=== PATIENT | female | born 1975 | race Caucasian/White ===

== ENCOUNTER 2020-06-09 11:18 | Outpatient (CLI) | payer OTHER, SELFPAY | END 2020-06-09 11:19 | disposition home or self-care (01) | LOC: ANHCOVIDVC 11:18 | PROVIDERS: PCP Family Medicine | DX: Z23 Encounter for immunization (principal) | CPT/HCPCS: 0001A; 91300 ==

== ENCOUNTER → 2020-06-23 10:20 | Outpatient (CLI) | payer OTHER, SELFPAY ==
--- NOTE | ~2020-06-23 | US_ITS ---
EXAMINATION: US pelvic complete w TV DATE: 06/23/2020 11:28 INDICATION: Pelvic and perineal pain Comparison:No prior studies for comparison. TECHNIQUE: Multiple transabdominal and endovaginal sonographic images of the pelvis performed. FINDINGS: The uterus measures 9.3 x 4.3 x 5.7 cm. The endometrial complex measures 5 mm. The right ovary measures 2.7 x 1.4 x 2.3 cm and the left ovary measures 1.7 x 0.9 x 1.3 cm. There ar e small follicles in each ovary. Normal doppler signal in both ovaries. There is no free fluid in the pelvis. There are no abnormal masses seen on either side. IMPRESSION: 1. Normal pelvic ultrasound. Reviewed, dictated and finalized at location B.
== END ==
DX: R10.2 Pelvic and perineal pain (principal)
CPT/HCPCS: 76830; 76856

== ENCOUNTER 2020-06-30 11:18 | Outpatient (CLI) | payer OTHER, SELFPAY | END 2020-06-30 11:19 | disposition home or self-care (01) | LOC: ANHCOVIDVC 11:18 | DX: Z23 Encounter for immunization (principal) | CPT/HCPCS: 0002A; 91300 ==

== ENCOUNTER → 2020-08-11 10:14 | Outpatient (CLI) | payer OTHER, SELFPAY ==
--- NOTE | ~2020-08-11 | MM_ITS ---
EXAMINATION: MM screening elmer BI w abran HISTORY: Screening mammogram TECHNIQUE: Craniocaudal and mediolateral oblique 3-D tomosynthesis images were obtained and synthetic 2-D images were generated. CAD analysis was submitted and interpreted. COMPARISON: No prior mammogram is available for comparison at this institution. BREAST PARENCHYMAL COMPOSITION: The breasts are heterogeneously dense, which may obscure small masses . FINDINGS: RIGHT BREAST: There is no evidence of suspicious mass, calcification, or architectural distortion to suggest malignancy. LEFT BREAST: An asymmetry is present in the subareolar aspect of the left breast. IMPRESSION: 1. Left breast asymmetry which may represent the patient's baseline however no comparison is currentl y available. 2. Comparison with prior mammograms is necessary. BI-RADS Category 0: Incomplete: Needs comparison with prior mammograms. Reviewed, dictated and finalized at location A. IMPRESSION: 1. Left breast asymmetry which may represent the patient's baseline however no comparison is currently available. 2. Comparison with prior mammograms is necessary. BI-RADS Category 0: Incomplete: Needs comparison with prior mammograms.
== END ==
DX: Z12.31 Encounter for screening mammogram for malignant neoplasm of breast (principal); R92.8 Other abnormal and inconclusive findings on diagnostic imaging of breast
CPT/HCPCS: 77063; 77067

== ENCOUNTER → 2020-09-16 09:19 | Outpatient (CLI) | payer OTHER, SELFPAY ==
--- NOTE | ~2020-09-16 | MMUS_ITS ---
EXAMINATION: MM diagnostic elmer LT w abran, US breast LT limited HISTORY: Follow-up subareolar asymmetry TECHNIQUE: Additional 3-D tomosynthesis images of the left breast were performed and synthetic 2-D im ages were generated. CAD analysis was submitted and interpreted. High resolution Limited left breast ultrasound was performed. COMPARISON: Comparison to multiple prior studies sequentially, with oldest reviewed study dated 06/2018. BREAST PARENCHYMAL COMPOSITION: Breast composed of scattered areas of fibroglandular density. FINDINGS: MAMMOGRAPHIC FINDINGS: There are no suspicious masses, calcifications or architectural distortion in the left breast to sugg est malignancy. ULTRASOUND: Left breast ultrasound: L1-2 o'clock, near the arterial lobe there is a 7 mm cyst. No suspicious kelly d masses to suggest malignancy. IMPRESSION: 1. No evidence for malignancy in the left breast. Benign findings. 2. Routine yearly screening mammogram and regular clinical breast examination are recommended. BI-RADS Category 2: Benign finding(s). Reviewed, dictated and finalized at location A. IMPRESSION: 1. No evidence for malignancy in the left breast. Benign findings. 2. Routine yearly screening mammogram and regular clinical breast examination a re recommended. BI-RADS Category 2: Benign finding(s).
== END ==
DX: R92.8 Other abnormal and inconclusive findings on diagnostic imaging of breast (principal)
CPT/HCPCS: 76642; 77061; 77065; G0279

== ENCOUNTER → 2020-10-28 03:41 | Outpatient (CLI) | payer OTHER, SELFPAY ==
[2020-10-28 18:14] LABS: SARS-CoV-2 RNA PCR Negative
== END ==
PROVIDERS: PCP Family Medicine; Visit Provider Physician Assistant
DX: R68.89 Other general symptoms and signs (principal); Z20.822 Contact with and (suspected) exposure to COVID-19
CPT/HCPCS: C9803; U0003; U0005

== ENCOUNTER 2021-06-02 11:00 | Outpatient (CLI) | payer OTHER, SELFPAY ==
--- NOTE | ~2021-06-02 | CT_ITS ---
EXAMINATION: CT soft tissue neck w con DATE: 06/02/2021 11:54 INDICATION: Neck mass. Left ear pain. TECHNIQUE: Computed tomography (CT) of the neck was performed with 75 mL Omnipaque-350 intravenous co ntrast. Automated exposure control and iterative reconstruction technique were employed. The dose-starla gth product was 418.09 mGy-cm. COMPARISON: None FINDINGS: There are no pathologically enlarged lymph nodes. The cervical carotid arteries are normal. The paranasal sinuses are clear. There is a trace right mastoid effusion. There are changes of anter ior fusion procedure from C3 to C7. There is moderate cervical and thoracic spondylosis. IMPRESSION: 1. No abnormal neck mass or lymphadenopathy. Reviewed, dictated and finalized at location A.
[2021-06-02 11:28] LABS: Estimated Glomerular Filt Rate > 60
== END 2021-06-02 11:01 ==
PROVIDERS: PCP Family Medicine; Visit Provider Otolaryngology
DX: R22.1 Localized swelling, mass and lump, neck (principal); M47.813 Spondylosis without myelopathy or radiculopathy, cervicothoracic region; Z98.1 Arthrodesis status
CPT/HCPCS: 70491; Q9967

== ENCOUNTER 2021-09-12 11:43 | Emergency (ER) | payer OTHER, SELFPAY ==
--- NOTE | ~2021-09-12 | XR_ITS ---
XR knee RT min 4V 09/12/2021 12:32 INDICATION: Right knee pain after fall PROCEDURE: 4 views right knee COMPARISON: No prior studies for comparison. FINDINGS: Fracture, dislocation or subluxation is not identified. No significant joint effusion. The soft tissues appear within normal limits. No foreign bodies are identified. There is anatomic alignm ent. No significant joint space narrowing. IMPRESSION: 1: NO ACUTE BONE OR JOINT ABNORMALITY IDENTIFIED. Reviewed, dictated and finalized at location A.
--- NOTE | 2021-09-12 11:45 | ED.LOWEXIN ---
HPI - Extremity Injury (Lower) General Stated Complaint: rt knee injury/work-related Time Seen by Provider: 09/12/21 11:45 Source: patient Mode of arrival: ambulatory Limitations: no limitations History of Present Illness HPI Narrative: Ms. Capps is a 45-year-old female patient presenting to the clinic today with complaints of right knee pain/injury that occurred at work on September 06, 2021. She reports she was leaning down to put some towels in an area and lost her balance and landed on her right knee. She reports pain to the anterior and posterior knee. Pain is worse with walking. She denies any swelling or redness. Related Data Allergies Allergy/AdvReac Type Severity Reaction Status Date / Time Iodinated Contrast Media Allergy Mild Unknown Verified 05/11/21 10:33 Review of Systems Review of Systems: Pertinent positives per HPI. Patient denies any fever, chills, rash, headache, visual changes, dizziness, cough, runny nose, sore throat, shortness of breath, chest pain, palpitations, nausea, vomiting, diarrhea, constipation, abdominal pain, or any urinary issues. PMFSH Past Medical History Medical History Bone spur Bulge of cervical disc without myelopathy Surgical History Surgical History S/P cervical disc replacement Family History Family History Father Diabetes mellitus Hypertension Family history of cardiovascular disease Social History Social History Smoking status: Never smoker Smoking end date: 02/26/16 Alcohol intake: current Substance use: never Gender identity (if verbalized by the patient): Female Sexual Orientation (if Verbalized by the Patient): Straight or Heterosexual Comments At the time of my signature, I reviewed and agree with the nursing past medical, surgical, social, and family history. There is no relevant family history pertinent to the patient complaint. Exam Narrative: General: Well-developed, well nourished, in no apparent distress Head: Normocephalic, atraumatic. Cardio: Regular rate and rhythm, s1 and s2 normal, no murmur appreciated. Resp: Clear to auscultation bilaterally, no rhonchi, rales, wheezing or rubs. Musculoskeletal: No deformity to the right knee, no swelling, no bruising,tender to palpation over the medial anterior knee and posterior knee, grossly normal range of motion, muscle strength strong and equal, peripheral pulse strong, no edema, no cyanosis, normal gait and station Course Course Emergency Course: Portions of this record may have been created with voice recognition software. Level of Care: Express Care Visit Vital Signs Vital signs: Vital signs reviewed MDM - Extremity Injury (Lower) MDM Narrative Medical decision making narrative: At the time of visit patient is resting comfortably on the exam table. Right knee x-ray performed and was negative for any fracture or malalignment. I suspect the patient has knee contusion/possible derangement. Will have patient get a hinged knee brace and wear this x1 week. Rest, ice, and elevate the right lower extremity. Supportive measures were discussed with the patient she voiced understanding of discharge instructions Differential Diagnosis Differential diagnosis: Likely acute internal derangement of knee and other (Knee contusion, knee sprain ) Imaging Data Attestation: I personally reviewed and interpreted this imaging study as follows: My impression: Right knee negative for any fracture or malalignment Radiologist's impression: [address] [address] XRay Report Signed Patient: Tejal Capps : 1975 MR#: [id number] Age/Sex: 45 / F Acct:[id number] Loc: [facility]? ? AD
[2021-09-12 12:03] VITALS: BP 114/77; PULSE 91; RESP 16; TEMP 36.5; O2SAT 98
== END 2021-09-12 12:50 | disposition home or self-care (01) ==
PROVIDERS: Emergency Provider Nurse Practitioner Family; PCP Family Medicine
DX: M25.561 Pain in right knee (principal)
CPT/HCPCS: 73564; 99213; G0463

== ENCOUNTER 2022-09-14 12:11 | Outpatient (CLI) | payer OTHER, SELFPAY ==
--- NOTE | ~2022-09-14 | XR_ITS ---
Left Knee Technique: AP, notch, sunrise, and lateral views were obtained. Clinical History: Pain Findings: No fracture or dislocation is seen. Osseous alignment is anatomic. Joint spaces are preserv ed without degenerative or erosive change. Soft tissues are unremarkable. No joint effusion is seen. Impression: Unremarkable left knee radiographs. Reviewed, dictated and finalized at location . Impression: Unremarkable left knee radiographs.
== END 2022-09-14 12:12 | disposition home or self-care (01) ==
PROVIDERS: PCP Family Medicine; Visit Provider Physician Assistant
DX: M25.562 Pain in left knee (principal)
CPT/HCPCS: 73564

== ENCOUNTER 2022-10-02 16:18 | Outpatient (CLI) | payer OTHER, SELFPAY ==
[2022-10-02 17:36] LABS: Bacteria Urine 2+ /hpf; Non Pathogenic Casts 0-2; RBC Urine 0-2 /hpf (0-2); Squamous Epithelial Cell Urine Occasional /hpf (Few); WBC Urine 21-50 /hpf (0-3)
[2022-10-02 18:08] LABS: Appearance Urine Cloudy (Clear); Bilirubin Urine Negative (Negative); Blood Urine 1+ (Negative); Color Urine Yellow (Yellow); Glucose Urine UA Negative (Negative); Ketones Urine Negative (Negative); Leukocyte Esterase Ur 1+ LEU/UL (NEGATIVE); Nitrate Urine Positive (Negative); Protein Urine Negative (Negative); Specific Grav Ur 1.011 (1.001-1.035); Urobilinogen Urine 0.2 mg/dL (<2.0); pH Urine 5.5 (5.0-9.0)
[2022-10-02 18:22] LABS: Add Urine Microscopic? YES
== END 2022-10-02 16:19 | disposition home or self-care (01) ==
PROVIDERS: PCP Family Medicine; Visit Provider Physician Assistant
DX: N39.0 Urinary tract infection, site not specified (principal); R35.0 Frequency of micturition
CPT/HCPCS: 81001; 87077; 87086; 87186

== ENCOUNTER 2023-01-15 08:20 | Emergency (ER) | payer OTHER, SELFPAY ==
--- NOTE | 2023-01-15 08:24 | ED.EYEPROB ---
HPI - Eye Problem General Chief complaint: Eye Problems Stated complaint: rt eye irritation Time Seen by Provider: 01/15/23 08:23 Source: patient Mode of arrival: ambulatory Limitations: no limitations History of Present Illness HPI Narrative: Tejal is a 47-year-old female patient presenting to the clinic today complaints of right eye irritation, cough, and sinus congestion. She reports sinus congestion is been going on for approximately 3 days. Itching watering right eye began last night. She denies any fever or chills. Reports that it is draining yellow discharge from the eye as well as crusting shut this morning. Eye is itchy and painful to touch. Related Data Home Medications Medication Instructions Recorded Confirmed celecoxib 200 mg capsule 200 mg PO DAILY 01/15/23 01/15/23 Allergies Allergy/AdvReac Type Severity Reaction Status Date / Time Iodinated Contrast Media AdvReac Mild Hives Verified 01/15/23 08:24 Review of Systems Review of Systems: Pertinent positives per HPI. Patient denies any fever, chills, rash, headache, visual changes, dizziness, sore throat, shortness of breath, chest pain, palpitations, nausea, vomiting, diarrhea, constipation, abdominal pain, or any urinary issues. [facility] Past Medical History Medical History Bone spur Bulge of cervical disc without myelopathy Surgical History Surgical History S/P cervical disc replacement Family History Family History Father Diabetes mellitus Hypertension Family history of cardiovascular disease Social History Social History Social History: Smoking status: Never smoker Tobacco type: cigarettes Second hand tobacco smoke exposure: No Smoking end date: 02/26/16 Alcohol intake: current Alcohol use details: Occasionally Substance use: never Substance use type: does not use Lack of Transportation: No Lack of Food: Never True Current Housing: I Have Housing Concerned About Future Housing: No Difficulty Paying Gas/Electric Bills: No Difficulty Paying for Meds: No Currently Unemployed: No Education: Trade/Vocational Certificate Living arrangements: with family Occupation/Education: occupation Additional occupation/education comments: [employer] Gender identity (if verbalized by the patient): Female Sexual Orientation (if Verbalized by the Patient): Straight or Heterosexual Comments At the time of my signature, I reviewed and agree with the nursing past medical, surgical, social, and family history. There is no relevant family history pertinent to the patient complaint. Exam Narrative: General: Well-developed, obese, in no apparent distress Head: Normocephalic, atraumatic Eyes: Pupils equally round and reactive to light bilaterally, EOM intact, left sclera and conjunctive clear, right sclera and conjunctiva injected with yellow mucopurulent discharge, no left eye discharge, left lids normal, right lid swelling Ears: TMs intact and congested, ear canals clear, no drainage, grossly hearing normal. Nose: Nares patent, clear nasal discharge, no inflammation, no sinus tenderness. Mouth: Oropharynx without lesions or masses, good dentition, MMM. Neck: Supple, trachea midline, no enlargement of anterior or posterior cervical nodes, no thyroid masses or goiter palpable. Cardio: Regular rate and rhythm, s1 and s2 normal, no murmur appreciated. Resp: Clear to auscultation bilaterally anteriorly and posteriorly, no rhonchi, rales, wheezing or rubs Course Course Emergency Course: Portions of this record may have been created with voice recognition software. Level of Care: Express Care Visit Vital Signs Vital signs: Vital signs reviewed
[2023-01-15 08:35] VITALS: BP 127/84; PULSE 99; RESP 20; TEMP 36.1; O2SAT 96
== END 2023-01-15 08:43 | disposition home or self-care (01) ==
PROVIDERS: Emergency Provider Nurse Practitioner Family; PCP Family Medicine
DX: H10.31 Unspecified acute conjunctivitis, right eye (principal); J06.9 Acute upper respiratory infection, unspecified; Z87.891 Personal history of nicotine dependence; Z98.890 Other specified postprocedural states
CPT/HCPCS: 99213; G0463

== ENCOUNTER 2023-03-21 10:33 | Emergency (ER) | payer OTHER, SELFPAY ==
--- NOTE | ~2023-03-21 | XR_ITS ---
EXAMINATION: XR knee LT min 4V DATE: 03/21/2023 11:17 INDICATION: Anterior and medial left knee pain post fall TECHNIQUE: Anteroposterior, 2 oblique and crosstable lateral views of the left knee were obtained COMPARISON: None. FINDINGS: Alignment is normal. No fracture. Joint space appear normal on nonweightbearing imaging. No joint ef fusion/layering lipohemarthrosis. Soft tissues are unremarkable. IMPRESSION: 1. Negative left knee radiographs. Reviewed, dictated and finalized at location A. [employer]
--- NOTE | 2023-03-21 10:36 | ED.LOWEXIN ---
HPI - Extremity Injury (Lower) General Chief Complaint: Extremity Injury, Lower Stated Complaint: fall,lt knee pain Time Seen by Provider: 03/21/23 10:35 Source: patient Mode of arrival: ambulatory Limitations: no limitations History of Present Illness HPI Narrative: Tejal is a 47-year-old female patient presenting to the clinic today with complaints of a left knee pain after falling yesterday the mud. She reports she was walking outside and slipped in the mud and fell on her knees. She is reporting anterior and medial left knee pain. Pain is worse with full extension or full flexion of the knee. Pain is mild with ambulation. Mild swelling noted Related Data Allergies Allergy/AdvReac Type Severity Reaction Status Date / Time iodine Allergy Hives Verified 03/21/23 10:58 Iodinated Contrast Media AdvReac Mild Hives Verified 01/15/23 08:24 Review of Systems Review of Systems: Pertinent positives per HPI. Patient denies any fever, chills, rash, headache, visual changes, dizziness, cough, runny nose, sore throat, shortness of breath, chest pain, palpitations, nausea, vomiting, diarrhea, constipation, abdominal pain, or any urinary issues. [facility] Past Medical History Medical History Bone spur Bulge of cervical disc without myelopathy Surgical History Surgical History S/P cervical disc replacement Family History Family History Father Diabetes mellitus Hypertension Family history of cardiovascular disease Social History Social History Social History: Smoking status: Never smoker Tobacco type: cigarettes Second hand tobacco smoke exposure: No Smoking end date: 02/26/16 Alcohol intake: current Alcohol use details: Occasionally Substance use: never Substance use type: does not use Lack of Transportation: No Lack of Food: Never True Current Housing: I Have Housing Concerned About Future Housing: No Difficulty Paying Gas/Electric Bills: No Difficulty Paying for Meds: No Currently Unemployed: No Education: Trade/Vocational Certificate Living arrangements: with family Occupation/Education: occupation Additional occupation/education comments: [employer] Gender identity (if verbalized by the patient): Female Sexual Orientation (if Verbalized by the Patient): Straight or Heterosexual Comments At the time of my signature, I reviewed and agree with the nursing past medical, surgical, social, and family history. There is no relevant family history pertinent to the patient complaint. Exam Narrative: General: Well-developed, well nourished, in no apparent distress Head: Normocephalic, atraumatic. Cardio: Regular rate and rhythm, s1 and s2 normal, no murmur appreciated. Resp: Clear to auscultation bilaterally, no rhonchi, rales, wheezing or rubs. Musculoskeletal: No deformity, tender to palpation over the medial and anterior inferior knee, pain with valgus and varus testing, pain with full extension and full flexion of the knee over the medial collateral ligament, grossly normal range of motion, muscle strength strong and equal, peripheral pulse strong, no edema, no cyanosis, normal gait and station Course Course Emergency Course: Portions of this record may have been created with voice recognition software. Level of Care: Express Care Visit Vital Signs Vital signs: Vital signs reviewed MDM - Extremity Injury (Lower) MDM Narrative Medical decision making narrative: At the time of visit patient is resting comfortably on the exam table. Patient appears to be nontoxic. Diagnostics: Left knee x-ray was performed. Negative for any fracture,malalignment, or effusion Plan: I suspect patient has an MCL spr
[2023-03-21 10:46] VITALS: BP 134/82; PULSE 80; RESP 18; TEMP 36.2; O2SAT 97
== END 2023-03-21 11:37 | disposition home or self-care (01) ==
PROVIDERS: Emergency Provider Nurse Practitioner Family; PCP Family Medicine
DX: S83.412A Sprain of medial collateral ligament of left knee, initial encounter (principal); W01.0XXA Fall on same level from slipping, tripping and stumbling without subsequent striking against object, initial encounter; Z87.891 Personal history of nicotine dependence
CPT/HCPCS: 73564; 99213; G0463

== ENCOUNTER → 2024-07-01 08:23 | Outpatient (CLI) | payer OTHER, SELFPAY ==
--- NOTE | ~2024-07-01 | XR_ITS ---
XR ankle LT 2V Ordering provider: Maye Doss PA-C History: . M76.60 - Achilles tendinitis, unspecified leg . Comparison: None. FINDINGS: BONES: No acute fracture or dislocation. JOINT SPACES: The ankle mortise is normal. SOFT TISSUES: Normal. Ossification of the insertion of the tendo Achilles. Calcaneal spur. IMPRESSION: No acute osseous abnormality left ankle. Reviewed, dictated and finalized at location A.
--- NOTE | ~2024-07-01 | XR_ITS ---
XR foot RT 2V Ordering provider: Maye Doss PA-C History: . pain in rt foot, no trauma . Comparison: None. FINDINGS: BONES: No acute fracture or dislocation. Incomplete union of the apophysis of the base of the fifth m etatarsal bone is noted. JOINT SPACES: Normal. No tarsal coalition. SOFT TISSUES: Normal. Ossification of the insertion of the tendo Achilles. Calcaneal spur. IMPRESSION: No acute osseous abnormality of the right foot. Reviewed, dictated and finalized at location A.
--- NOTE | ~2024-07-01 | XR_ITS ---
XR foot LT 2V Ordering provider: Maye Doss PA-C History: . M79.042-Pain in left foot,no known trauma . Comparison: None. FINDINGS: BONES: No acute fracture or dislocation. JOINT SPACES: Normal. No tarsal coalition. SOFT TISSUES: Normal. Calcaneus spur. IMPRESSION: No acute osseous abnormality left foot. Reviewed, dictated and finalized at location A.
--- NOTE | ~2024-07-01 | XR_ITS ---
XR ankle RT 2V Ordering provider: Maye Doss PA-C History: . M76.60 - Achilles tendinitis, unspecified leg . Comparison: None. FINDINGS: BONES: No acute fracture or dislocation. JOINT SPACES: Normal. SOFT TISSUES: Normal. Ossification of the insertion of the tendo Achilles. Calcaneal spur. IMPRESSION: No acute osseous abnormality of the right ankle. Reviewed, dictated and finalized at location A.
--- OUTSIDE RECORDS SUMMARY | 2024-07-01 08:29 | XMS_ITS | Data Portability ---
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 We talked about treatment options were and start with a course of Celebrex 200 mg daily, do some more physical therapy to treat her anterior knee pain work on patellar mobilization we talked about doing gel shots as well she would like to proceed we will get these approved and see her back next week to start the 1st round of injections. the patient voiced understanding agrees above plan she will call for any further problems difficulties or questions she will continue with her patellar guide brace as well and previous exercises as instructed by therapy. Not available 01/14/2023 09:19:28 03/08/2023 03/08/2023 Patient has ongoing left knee pain due to mild primary osteoarthritis particularly behind the kneecap she also has Harris cyst she is going to continue with current conservative measures however she would also like a shot of cortisone as we cannot get the gel shots set up yet. Under sterile conditions at her request I injected the patient's left knee joint in the office with 4 cc 0.5% bupivacaine and 20 mg of Kenalog. Patient tolerated the procedure well. We will see her back as needed if and when the gel shots become available we can get these set up in the next 6 weeks or so. She voiced understanding agrees above plan she will call for any further problems difficulties or questions. Not available 03/08/2023 11:34:50 05/13/2023 05/13/2023 patient has hptk-ub-qgikutfs primary osteoarthritis of left knee joint as described noted on MRI x-ray and exam, with the above associated findings. The patient brings in her Euflexxa injection from the specialty pharmacy today therefore under sterile conditions I injected the patient's left knee joint in the office with Euflexxa injection number 1. I will see her back next week for the 2nd injection left knee. She tolerated the procedure well. She voiced understanding agrees above plan she will call for any further problems difficulties or questions. Not available 05/13/2023 11:05:10 05/20/2023 05/20/2023 The patient has uwgi-hp-lbhpvlqn primary osteoarthritis left knee joint as described. Under sterile conditions I injected the patient's left knee joint in the office with Euflexxa injection number 2. She brought this up from the specialty pharmacy for injection today. She tolerated the procedure well. I will see her back next week for the 3rd injection left knee she voiced understanding agrees above plan she will call for any further problems difficulties or questions. Not available 05/20/2023 09:10:27 05/30/2023 05/30/2023 The patient has qcab-ub-wonigdyh primary osteoarthritis left knee joint under sterile conditions I injected the patient's left knee joint with Euflexxa injection number 3 that the patient brought with her from the specialty pharmacy today. She tolerated the procedure well. I will see her back as needed we can do this again in 6 months if necessary versus cortisone in between. She is doing very well so far hopefully this will last for her. She voiced understanding agrees above plan she will call for any further problems difficulties or questions. Not available 05/30/2023 09:20:16 Plan of Treatment Reminders Order Date Submit Date Provider Last Modified By Organization Details Last Modified Time Details Appointments None recorded. Lab None recorded. Referral physical therapist referral - please contact patient to schedule 2022 023 [email or web address] [facility], [address], [place], [address], 09:59:09 Procedures injection/a spiration joint/bursa (PROC) - in office procedure, administere d by provider 2023 024 In-Office Order, Internal Use Only DO Not Attach Compendium DO Not Attach Compendium, Do Not Delete/merge, [id number] 09:05:06 injection/a spiration joint/bursa (PROC) - in office procedure, administere d by provider 2023 024 In-Office Order, Internal Use Only DO Not Attach Compendium DO Not Attach Compendium, Do Not Delete/merge, [id number] 09:01:14 knee aspiration/ injection (PROC) 2023 024 [email or web address] In-Office Order, Internal Use Only DO Not Attach Compendium DO Not Attach Compendium, Do Not Delete/merge, [id number] 4 10:52:55 injection/a spiration joint/bursa (PROC) 2023 024 In-Office Order, Internal Use Only DO Not Attach Compendium DO Not Attach Compendium, Do Not Delete/merge, 4 10:45:53 Surgeries None recorded. Imaging None recorded. Medication Orders Euflexxa 10 mg/mL (mw 2.4-3.6 million) intra-artic ular syringe [address] [facility], [address], [address], 4 10:54:43 bupivacaine HCl 0.5 % (5 mg/mL) injection solution [address] [facility], [address], [address], 4 12:30:05 Kenalog 10 mg/mL suspension for injection [address] [facility], [address], [address], 4 12:30:05 celecoxib 200 mg capsule 11/20/ 2023 11/20/2 023 [email or web address] [facility], [address], [place], [address], 3 09:59:09 Patient TargetsNo targets recorded. Patient InstructionsNo instructions recorded. Reason for Referral Physical Therapist Referral for Osteoarthritis of left knee joint please contact patient to schedule please work on patella immobilization Referring Physician: Yi Shannon, Orthopedic Surgery, Encounter Date: 01/14/2023 Results Created Date Observation Date Name Description Value Unit Range Abnormal Flag Note LastModifiedBy Organization Detail LastModifiedTime 01/11/20 23 MRI, knee, w/o contr ast [facility] [address] [place] [address] Patien t Name: TEJAL CAPPS Access ion #: [id number] Sex: F : 1975 3 Dictat ed By: Madeline marley Attend ing Physic li: YI SHANNON Orderi ng Physic li: YI SHANNON Exam Date: 2022 09:26 AM Exam Name: MRI KNEE LT WO Admitt ing Diagno sis(es ): CLINIC AL INFORM ATION: Left knee osteoa rthrit is. Anteri or pain. Care Partner ior lump. COMPAR LINA: None. TECHNI JEFF INFORM ATION: Multis equenc e multip lanar MRI images of the left knee were obtain ed withou t contra st. FINDIN GS: Crucia te ligame nts: ACL and PCL are intact and otherw ise unrema rkable . Extens or mechan ism: Galen ceps mechan ism and patell ar tendon are intact . Mild edema and small amount of fluid in the prepat ellar and superf icial infrap atella r bursae . Collat eral ligame nts: Medial and latera l collat eral ligame nts are intact and otherw ise unrema rkable . Menisc i: No signif icant degene ration . No eviden ce of menisc al tear. Cartil age: Chondr al frayin g and mild fissur ing in the patell a, near the median ridge. Chondr al thinni ng and mild frayin g in the weight bearin g zone of the medial femora l condyl e and in the weight bearin g zone of the latera l femora l condyl e. Bones: No acute fractu re or focal marrow contus ion Joint fluid: No signif icant joint effusi on. No synovi tis or loose bodies . Other: Poplit eal cyst measur es up to 5.6 cm in cranio caudal dimens ion with lobula leland, septat ed compon ents at its superi or aspect . IMPRES PORFIRIO: 1. Mild prepat ellar and superf icial infrap atella r bursit is. 2. Poplit eal cyst. 3. Mild chondr omalac ia involv ing all 3 compar tments . Electr onical ly Signed by: Madeline marley at 2022 13:34: 25 PM Page 1 [facility] [address] [place], [address], 01/10/2023 15:00:02 Result Notes None recorded. Problems Name Problem SNOMED Code Status Onset Date Resolution Date Notes Provider Name and Address Organization Details Recorded Time Disorder of shoulder 268347122 Active Not Available [facility] 3 21:13:15 Localized, primary osteoarthr itis 767911153 Active Not Available [facility] 3 21:13:15 Partial thickness rotator cuff tear 497094239 Active 2018 Not Available [facility] 3 21:13:15 Arthritis of acromiocla vicular joint 049818594 Active 2018 Not Available [facility] 3 21:13:15 Pain of shoulder region 31298349 Active 2018 Not Available [facility] 3 21:13:15 Spinal stenosis in cervical region 99381270 Active 2018 Not Available [facility] 3 21:13:15 Pain of left knee joint 4134451220715 07 Active 2022 Arleen Baez CNA null, [place] [facility] 3 09:13:18 Osteoarthr itis of left knee joint 9002485032975 09 Active 2022 FRANCHESKA Montez [address], [address] , [facility] [employer] [facility] 3 09:28:27 Synovial cyst of left knee 5286891368014 02 Active 2022 FRANCHESKA Montez [address], [address] , [facility] [employer] [facility] 3 09:12:48 Derangemen t of left knee 0471493433281 9108 Active 2022 FRANCHESKA Montez [address] [address], [place], [address] , [facility] [employer] [facility] 3 09:13:19 Problem Notes None recorded. Procedures Surgical History Date Name Laterality Status Provider Name and Address Organization Details Recorded Time 08/11/2020 Neck completed Arleen Baez CNA [facility] [employer] [facility] 11/19/2022 09:12:39 Imaging Results Imaging Date Name Status LastModified by Organiz ation Details LastModified Time 01/10/2023 MRI, knee, w/o contrast completed [address] (Imaging) [address] [place], [address], 01/10/2023 15:00:02 Procedure Notes None recorded. Medical Equipment None Reported. Allergies No known drug allergies Medications Name Sig Start Date Stop Date Status Note LastModified by Organization Details LastModified Time celecoxib 200 mg capsule TAKE 1 CAPSULE BY MOUTH ONCE DAILY active Not Available Not Available No t Available Mirena 21 mcg/24 hr (up to 8 years) 52 mg intrauterin e device 11/19 completed Not Available Not Available Not Available prednisone 10 mg tablet TAKE 1 TABLET BY MOUTH THREE TIMES DAILY FOR 3 DAYS THEN 1 TWICE DAILY FOR 2 DAYS THEN 1 ONCE DAILY FOR 1 DAY active Not Available Not Available No t Available doxycycline hyclate 100 mg capsule TAKE 2 CAPSULES BY MOUTH A ONE TIME DOSE 11/19 completed Not Available Not Available Not Available bupivacaine HCl 0.5 % (5 mg/mL) injection solution in office 2023 active Not Available Not Available Not Avai lable prednisone 20 mg tablet TAKE 2 TABLETS BY MOUTH ONCE DAILY FOR 5 DAYS active Not Available Not Available No t Available metronidazo le 500 mg tablet TAKE 1 TABLET BY MOUTH TWICE DAILY FOR 7 DAYS active Not Available Not Available No t Available prednisone 10 mg tablets in a dose pack Take 1 tab by mouth, 3 times a day for 3 daysTake 1 tab by mouth 2 times a day for 2 daysTake 1 tab by mouth once a day for 1 day 2022 active Not Available Not Available Not Avai lable meloxicam 7.5 mg tablet TAKE 1 TABLET BY MOUTH ONCE DAILY NEEDED KNEE PAIN 11/19 completed Not Available Not Available Not Available terbinafine HCl 250 mg tablet 11/19 completed Not Available Not Available Not Available amitriptyli ne 25 mg tablet active Not Available Not Available Not Available ropinirole 0.25 mg tablet TAKE 1 TABLET BY MOUTH AT BEDTIME active Not Available Not Available No t Available Kenalog 10 mg/mL suspension for injection in office 2023 active Not Available Not Available Not Avai lable meclizine 25 mg tablet 11/19 completed Not Available Not Available Not Available tobramycin 0.3 % eye drops INSTILL 1 DROP INTO RIGHT EYE EVERY 4 HOURS FOR 7 DAYS active Not Available Not Available No t Available nystatin 100,000 unit/gram topical cream 11/19 completed Not Available Not Available Not Available lisinopril 10 mg tablet active Not Available Not Available Not Available ondansetron 4 mg disintegrat ing tablet 11/19 completed Not Available Not Available Not Available sertraline 50 mg tablet active Not Available Not Available Not Available doxycycline hyclate 100 mg tablet 11/19 completed Not Available Not Available Not Available nitrofurant oin monohydrate /macrocryst als 100 mg capsule TAKE 1 CAPSULE BY MOUTH EVERY 12 HOURS WITH FOOD OR A MEAL FOR 5 DAYS 11/19 completed Not Available Not Available Not Available Euflexxa 10 mg/mL (mw 2.4-3.6 million) intra-artic ular syringe Inject 2.5 mL by intra-art icular route for 35 days. 2023 active Not Available Not Available Not Avai lable lidocaine (PF) 10 mg/mL (1 %) injection solution In office injection administe red by the provider 11/19 completed [facility]: [phone]- [phone] Not Available Not Available Not Available ropivacaine (PF) 5 mg/mL (0.5 %) injection solution Take 20 mg by injection route. 2022 active [facility] [phone] Not Available Not Available Not Available Vitals Date Recorded Body height Body mass index (BMI) Body weight Provider Name and Address Organization Details Last Updated DateTime 01/14/2023 162.56 cm 37.8 kg/m2 27758.32 g Arleen Baez CNA [employer] 01/14/2023 08:54:30 Date Recorded Body height Body mass index (BMI) Body weight Provider Name and Address Organization Details Last Updated DateTime 03/08/2023 162.56 cm 37.4 kg/m2 30705.14 juan ramon MARCELO Patle [employer] 03/08/2023 11:18:21 Date Recorded Body height Provider Name an d Address Organization Details Last Updated DateTime 05/13/2023 162.56 cm Jaclyn Schulte [employer] 05/13/2023 10:50:25 Date Recorded Body height Body mass index (BMI) Body weight Provider Name and Address Organization Details Last Updated DateTime 05/20/2023 162.56 cm 37.4 kg/m2 06443.14 juan ramon Arleen Baez CNA [employer] 05/20/2023 09:00:26 Date Recorded Body height Body mass index (BMI) Body weight Provider Name and Address Organization Details Last Updated DateTime 05/30/2023 162.56 cm 37.4 kg/m2 52983.14 juan ramon Arleen Baez CNA [employer] 05/30/2023 09:04:27 Social History Question Answer Notes LastModified by Organizat ion Details LastModified Time Tobacco Smoking Status Former Smoker JANICE Aldana [employer] 11/19/2022 09:12:16 When Did You Quit Smoking? 6-10yearssi ncelastciga rette 7 Years Ago Information not available 11/19/2022 How Much Tobacco Do You Smoke? 1 PPD Information not available 11/19/2022 How Many Years Have You Smoked Tobacco? 10 Information not available 11/19/2022 Sex: Unknown Functional Status None recorded. Mental Status None recorded. Family History Relationship Description Onset Age of this Age Resolved Age Notes LastModified by Organization Details LastModified Time Father Heart disease Not available 2022 09:10:52 Father Hypertensive disorder Not available 2022 09:11:03 Father Diabetes mellitus Not available 2022 09:11:12 Medical History Condition Response ARTHRITIS Y DIABETES, TYPE Y HYPERTENSION Y Gynecological HistoryNo gynecological history recorded. Obstetrics History GPAL:G 0 P 0 0 0 0 Past Encounters Encounter ID Performer Location Encounter Start Date Encounter Closed Date Diagnosis/Indication Diagnosis SNOMED-CT Code Diagnosis ICD10 Code Diagnosis Note [id number] Shashi Stevens MD [facility] [place] [address] [place] [address] 11/19/2022 08:52:49 11/19/2022 10:00:13 Pain of left knee joint 0159091671 19001 M25.562 Osteoarthr itis of left knee joint 6095241393 42211 M17.12 [id number] Candelario Gil MD [facility] [place] [address] [place] [address] 12/31/2022 08:54:51 12/31/2022 10:47:09 Osteoarthritis of left knee joint 8500085287 31908 M17.12 Synovial c yst of left knee 5946593928 36974 M71.22 Derangemen t of left knee 0480826658 4502122 M23.92 [id number] Candelario Gil MD [facility] [place] [address] [place] [address] 01/14/2023 08:52:16 01/14/2023 09:41:21 Derangement of left knee 7431320268 0687770 M23.92 Synovial c yst of left knee 1143673577 76897 M71.22 Osteoarthr itis of left knee joint 7205013339 80003 M17.12 [id number] Candelario Gil MD [facility] [place] [address] [place] [address] 03/08/2023 11:14:35 03/08/2023 11:49:29 Derangement of left knee 9297947304 3098486 M23.92 Synovial c yst of left knee 1700225008 21423 M71.22 Osteoarthr itis of left knee joint 5983417667 20651 M17.12 [id number] Delano Romo MD [facility] [place] [address] [place] [address] 05/13/2023 10:46:14 05/13/2023 11:01:29 Derangement of left knee 1204702652 8749091 M23.92 Osteoarthr itis of left knee joint 4203753460 77759 M17.12 Synovial c yst of left knee 3872237911 09091 M71.22 [id number] Delano Romo MD [facility] [place] [address] [place] [address] 05/20/2023 08:48:50 05/20/2023 09:31:26 Derangement of left knee 2899137017 9771990 M23.92 Synovial c yst of left knee 5364932655 74226 M71.22 Osteoarthr itis of left knee joint 7245582320 09676 M17.12 [id number] Delano Romo MD [facility] [place] [address] [place] [address] 05/30/2023 08:47:17 05/30/2023 09:23:18 Osteoarthritis of left knee joint 1999776341 35911 M17.12 Pain of le ft knee joint 0319425967 92583 M25.562 Health Concerns Section Related Observation LastModified by Organization Detai ls LastModified Time None Recorded Concern Status LastModified by Organization Details LastModified Time None Recorded Advance Directives Directive None Recorded Payers Encounter Date Sequence Insurance Name Policy Number Policy Conde Covered Member ID Conde Member ID Guarantor Name 01/14/2023 1 [facility] [id number] Tejal Capps [id number] Tejal Capps 03/08/2023 1 [facility] [id number] Tejal Capps [id number] Tejal Capps 05/13/2023 1 [facility] [id number] Tejal Capps [id number] Tejal Capps 05/20/2023 1 [facility] [id number] Tejal Capps [id number] Tejal Capps 05/30/2023 1 [facility] [id number] Tejal Capps [id number] Tejal Capps Notes Date Note Type Note Provider Name and Address Organization Details Recorded Time 01/14/2023 text/html Patient returns for recheck of her left knee and MRI scan results. The MRI scan shows inflammation with a popliteal cyst measuring 5.6 cm and dimension this is a lobulated septated. No significant joint effusion is noted no loose bodies medial collateral ligaments are intact there is some chondral fraying and mild fissuring of the patella near the median ridge with lateral patellar tilt the menisci appeared to be intact. Some mild prepatellar and superficial infrapatellar bursitis is noted the patient states that 1 shot of cortisone a couple of months ago gave her pretty good relief for a while. However symptoms continue. She stands on her feet all day at work she has stairs at home she has a lot of problems with going up and down stairs has mostly anterior knee pain. We did a course of physical therapy and oral prednisone as well however I think she also needs to have some work with the therapist again to work on patellar mobilization she states this was never achieved. She does not take any oral anti-inflammatory medication on a regular basis medically needs to try this as well. She comes in today talk about further treatment options I have reviewed the MRI scan in detail today with the patient agree with above findings. FRANCHESKA Montez [address] [facility] [address], [place], [address], [place] [facility] [employer] 01/14/2023 09:19:49 03/08/2023 text/html Patient returns complaining left knee pain. We have been trying to get gel shots set up for her however the manufacture is still having issues with inventory so we are unable to proceed with Euflexxa. She has not approved by her insurance for any other brand. She has some aching pain she would like to proceed with cortisone today instead. She does take Celebrex daily and does some physical therapy exercises she has a history of a Harris cyst in the left popliteal space and also an MRI scan has showed chondral fraying and mild fissuring of the patella near the median ridge with lateral patellar tilt. She has been working on patellar mobilization trying to get by but her symptoms interfere with her daily activities somewhat. She comes in today requesting repeat cortisone injection left knee. Denies any new trauma or injury no erythema effusion or signs of infection. FRANCHESKA Montez [address], [place], [address], [employer] 03/08/2023 11:35:02 05/13/2023 text/html Patient returns she is 47 years of age she has chronic aching pain in the left knee we have tried cortisone previously she has mild primary osteoarthritis but mostly behind the kneecap with lateral patellar tilt. She has trouble squatting kneeling going up and down stairs she also has a Harris cyst. An MRI scan showed chondral fraying and mild fissuring of the patella near the median ridge with lateral patellar tilt but no evidence of obvious meniscal tear. She has mild chondromalacia all 3 compartments of the knee. For the most part she gets along okay but if she stands or walks for too long she gets sharp stabbing pains in the knee aching pain worse with activity somewhat relieved by rest. Despite conservative measures symptoms continue. She would like to try a round of gel shots she comes in today for Euflexxa injection number 1. We have ordered this from a specialty pharmacy and brings this with her today to the office for injection. FRANCHESKA Montez [address], [place], [address], [employer] 05/13/2023 11:05:31 05/20/2023 text/html Patient returns for Euflexxa injection number 2. She brings it in from the specialty pharmacy for injection today. She has mild to moderate primary osteoarthritis noted on previous MRI and x-ray exams. She has lateral patellar tilt most of the wear is in the patellofemoral articulation. There is chondral fraying and fissuring in the patella near the median ridge of the patellofemoral articulation. She is aching pain did well with the 1st injection she comes in today for the 2nd 1. FRANCHESKA Montez [address], [place], [address], [employer] 05/20/2023 09:10:37 05/30/2023 text/html Patient returns for Euflexxa injection number 3 left knee. She brings it in today from the pharmacy for us to inject. Denies any erythema heat effusion or signs of infection she has nlub-rg-lbeijacs primary osteoarthritis left knee joint as described previously on MRI and exam with chondral fraying and mild fissuring of the patella near the median ridge and lateral patellar area and some patellar tilt as well no evidence of obvious meniscal tears noted. She states she is getting excellent relief from the 1st round of injections no complaints today. FRANCHESKA Montez [address], [place], [address], [employer] 05/30/2023 09:20:27 OBGyn Episode No OBEpisode recorded.
--- OUTSIDE RECORDS SUMMARY | 2024-07-01 08:29 | XMS_ITS | Clinical Summary ---
Author Organization [facility] [address] Address [address] [place] [address] Phone Care Team Providers Care Bone Char Kiln Tender Name Role Phone Baron Herrera MD Primary Care Provider Allergies Active Allergy Reactions Criticality Noted Date Comments Iodine Itching Low 03/06/2019 Medications lisinopril (PRINIVIL,ZESTR IL) 10 mg tablet Take 1 tablet (10 mg total) by mouth nightly Active terbinafine (LamiSIL) 250 mg tabletIndicatio ns:Skin/Soft Tissue Infection Take 250 mg by mouth nightly Active vitamin G77-cbsxy acid 0.5-1 mg tablet Take 1 tablet by mouth nightly Active ibuprofen (ADVIL,MOTRIN) 600 mg tablet Take 1 tablet (600 mg total) by mouth every 6 (six) hours as needed for pain 03/13/2019 Active amitriptyline (ELAVIL) 25 mg tablet 06/04/2020 Active sertraline (ZOLOFT) 25 mg tablet 2 tablets (50 mg total) 05/26/2020 Active rOPINIRole (REQUIP) 0.25 mg tablet 03/11/2022 Active Active Problems Problem Noted Date Diagnosed Date Obesity (BMI 30-39.9) 03/19/2023 Hypertension 06/05/2018 Resolved Problems Problem Noted Date Diagnosed Date Resolved Date Menorrhagia with regular cycle 02/13/2019 03/27/2019 Overview (02/13/2019): Added automatically from request for surgery [id number] Encounters Date Type Department Care Team Description 04/03/2024 Telephone [facility] [address] [place] [address] Tejal Rodrigues LPN from Last 3 Months Surgical History Surgery Date Site/Laterality Comments TONSILLECTOMY/ADENOIDECTOM Y TUBAL LIGATION 02/26/2008 - 02/24/2009 with last EAR SURGERY for hearing loss FOOT SURGERY THROAT SURGERY removal of residual tonsil COMBINED LAPAROSCOPY W/ HYSTEROSCOPY 02/25/2018 - 02/24/2019 Acute pelvic pain - hysteroscopic IUD removal, right ovarian cystectomy, CORIE, fulguration of left tubal endometriosis SECTION x3, last with tubal ligation HYSTEROSCOPY W/ ENDOMETRIAL ABLATION 02/25/2019 - 02/25/2020 Hysteroscopy, D&C, Joy endometrial ablation Medical History Medical History Date Comments Motion sickness Hypertension GERD (gastroesophageal reflux disease) Abnormal bleeding in menstrual cycle HPV (human papilloma virus) anogenital infection treated and last Pap smear w as normal Family History Medical History Relation Name Comments Diabetes Father Diabetes Father's Brother Diabetes Maternal Grandmother Hypertension Other Relation Name Status Comments Father Father's Brother Maternal Grandmother Other Social History Tobacco Use Types Packs/Day Years Used Date Smoking Tobacco: Former Cigarettes 1 28.4 1 0 - 07/2017 Smokeless Tobacco: Never Tobacco Cessation:Counseling Given: Not Answered Alcohol Use Standard Drinks/Week Comments Yes 3 (1 standard drink = 0.6 oz pur e alcohol) 2 x month Comments No Sex and Gender Information Value Date Recorded Sex Assigned at Not on file Legal Sex 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 Gender Identity Not on file Sexual Orientation Not on file Occupation Industry Job Start Date Job End Date [employer] Not on file Not on file Not on file Obstetrics History Para Term AB IAB SAB Ectopic Multiple Livin g Live Births 4 3 3 0 0 3 Date Outcome GA Total Labor Labor/2nd/3rd Weight Sex Type Anes PTL Shaina A1 A5 Name Clin Term Term Term Last Filed Vital Signs Vital Sign Reading Time Taken Comments Blood Pressure 132/78 04/01/2024 11:07 AM GAS REFRIGERATOR SERVICER Pulse 70 03/13/2019 10:10 AM GAS REFRIGERATOR SERVICER Temperature 36.4 C (97.5 F) 06/12/2019 11:47 AM CDT Respiratory Rate 18 03/13/2019 10:10 AM GAS REFRIGERATOR SERVICER Oxygen Saturation 97% 03/13/2019 10:10 AM GAS REFRIGERATOR SERVICER Inhaled Oxygen Concentration - - Weight 99.8 kg (220 lb) 04/01/2024 11:07 AM GAS REFRIGERATOR SERVICER Height 162.6 cm (5' 4 ) 04/01/2024 11:07 AM GAS REFRIGERATOR SERVICER Body Mass Index 37.76 04/01/2024 11:07 AM GAS REFRIGERATOR SERVICER Plan of Treatment Health Maintenance Due Date Last Done Comments Colon Cancer Screening-Colonoscopy 1975 Depression Screening 1975 Hepatitis C Screening 1975 DTaP/Tdap/Td Vaccine (1 - Tdap) 10/12/1987 Cervical Cancer Screening 03/19/2024 03/19/2023, Influenza Vaccine (Season Ended) 2024 Breast Cancer Screening-Mammogram 04/01/2025 04/01/2024, 03/19/2023, 03/14/2022, Additional history exists Regular Well Visit/Exam 18-64 04/01/2025 04/01/2024, 03/19/2023, 03/14/2022, Additional history exists Hepatitis B Screening Completed 03/19/1996, 996 Pneumococcal vaccine <65 Aged Out No longer eligible based on patient's age to complete this topic Procedures Procedure Name Priority Date/Time Associated Diagnosis Comments SCREENING MAMMOGRAM BILATERAL W RONI Schedule Routine, Read Routine (OP Routine) 04/01/2024 11:56 AM GAS REFRIGERATOR SERVICER Encounter for screening mammogram for breast cancer PAP AND HIGH RISK HPV, REFLEX TO GENOTYPING Routine 03/19/2023 8:28 AM GAS REFRIGERATOR SERVICER Screening for malignant neoplasm of the cervix from Last 3 Months or Most Recently Relevant to Health Maintenance Results * Screening Mammogram Bilateral W Roni (04/01/2024 11:56 AM GAS REFRIGERATOR SERVICER) Anatomical Region Laterality Modality Breast Bilateral Mammography 04/01/2024 12:0 3 PM GAS REFRIGERATOR SERVICER Impressions 04/01/2024 12:03 PM GAS REFRIGERATOR SERVICER There is no mammographic evidence of malignancy. A 1 year screening mammogram is recommended. BI-RADS: 1 - Negative. The patient has been or will be contacted. The patient will be entered into a reminder system with a target due date of 1 year for her next mammogram. Electronically signed by: Gabbie Lockhart M.D. Narrative 04/01/2024 12:03 PM GAS REFRIGERATOR SERVICER EXAMINATION: SCREENING MAMMOGRAM BILATERAL W RONI ORDERING HEALTHCARE PROVIDER: WALTER LEIGH HISTORY: Routine screening mammography. COMPARISON: 03/19/2023, 03/14/2022, 05/30/2018 TECHNIQUE: CC and MLO views of the bilateral breasts were obtained with digital technique using breast tomosynthesis with C view. Computer aided detection was utilized. FINDINGS: DENSITY: There are scattered areas of fibroglandular density. BREASTS: There are no suspicious masses, suspicious calcifications, or other suspicious findings in either breast. There has been no suspicious interval change. us Walter Leigh MD IMG MAMMO PROCEDURES Final Result * Pap and High Risk HPV and Genotyping (Cytology Component) (03/19/2023 8:28 AM GAS REFRIGERATOR SERVICER) Thin prep (Pap test) 03/19/2023 8:28 AM GAS REFRIGERATOR SERVICER 03/19/2023 8:28 AM GAS REFRIGERATOR SERVICER Narrative PATHOLOGY CH - 03/21/2023 2:03 PM GAS REFRIGERATOR SERVICER [facility] Department of Pathology [address] [place], [place] [id number] Final Report with Addendum Note to Patients: This report may contain a detailed description of human tissue sent by a health care provider to the laboratory for pathologic evaluation. The content of this report is essential for diagnosis and may provide important critical findings. This information may be unfamiliar to patients to review without a medical professional present. It is advised that the patient review this report in the presence of a health care provider who can answer questions and explain the details. Patient Name: TEJAL CAPPS Address: [address] [place] [address]- Gender: F : 1975 (Age: 47) Service: Location: N : [id number] [facility] #: [id number] Patient Type: SPECIMEN Taken: 03/19/2023 Received: 03/19/2023 Accessioned:: 03/20/2023 Reported: 03/21/2023 Physician(s): MD Walter Villagran MD Diagnosis: SOURCE OF SPECIMEN SCREENING THIN PREP IMAGED PAP w/ HPV: STATEMENT OF ADEQUACY - Specimen satisfactory for interpretation; endocervical/transformation zone component absent or insufficient GENERAL CATEGORIZATION: - Negative for intraepithelial lesion or malignancy INTERPRETATION: - Predominance of coccobacilli consistent with shift in vaginal karissa. Possible bacterial vaginosis OSVALDO Barajas(ASCP) Report Electronically Reviewed and Signed Out By OSVALDO Barajas(ASCP) 03/21/2023 14:03:10Addenda: HPV Test Interpretation (Normal-Negative for High Risk HPV) HPV HR 16- Not detected HPV HR 18-Not detected HPV HR non 16/18- Not detected Interpretive Data Nucleic acid amplification for detection of high-risk Human Papilloma virus (HPV) is performed by the [place] 6800 HPV test. This assay specifically detects HPV- 16 and HPV-18 genotypes. The following HPV genotypes are detected as high-risk HPV: HPV-31, 33, 35, 39, 45, 51, 52, 56, 58, 59, 66, and 68. This assay has been approved by the [place] Food and Drug Administration for detection of HPV in cervical specimens collected by a physician using an endocervical brush/spatula or cervical broom and placed in the ThinPrep Pap Test PreservCyt collection containers. The performance characteristics of this test have been verified by the [facility] Molecular Infectious Disease laboratory. Correlate with reported cytology results, as applicable. Interpretive data last revised 22 OSVALDO Beal(ASCP)Report Electronically Reviewed and Signed Out By OSVALDO Beal(ASCP) 03/21/2023 08:40:40 Specimen(s) Received: A: SCREENING THIN PREP IMAGED PAP w/ HPV Clinical History: Menstrual History: Previous Negative Pap The Pap test is a screening test used to aid in the detection of cervical cancer and its precursors. It should not be the sole means by which malignant and premalignant lesions are diagnosed. Both false negative and false positive results may occur. It also has poor sensitivity for the detection of endometrial lesions and should not be used to evaluate suspected endometrial abnormalities. For these reasons it is most important to obtain Pap tests at regular intervals. The performance characteristics of some immunohistochemical stains, fluorescence in-situ hybridization tests and immunophenotyping by flow cytometry cited in this report (if any) were determined by the Surgical Pathology Department at [facility] as part of an ongoing quality control scientist program and in compliance with federally mandated regulations drawn from the Clinical Laboratory Improvement Act of 1988 (CLIA '88). Some of these tests rely on the use of analyte specific reagents and are subject to specific labeling requirements by the US Food and Drug Administration. Such diagnostic tests may only be performed in a facility that is certified by the Department of Health and Human Services as a high complexity laboratory under CLIA '88. The FDA has determined that such clearance or approval is not necessary. This test is used for clinical purposes. It should not be regarded as investigational or for research. Nevertheless, federal rules concerning the medical use of analyte specific reagents require that the following disclaimer be attached to the report: This test was developed and its performance characteristics determined by the Surgical Pathology Department [facility]. It has not been cleared or approved by the U. S. Food and Drug Administration. Walter Leigh MD LAB CYTOLOGY ORDERABL ES Final Result PATHOLOGY [address] [place] [address] from Last 3 Months or Most Recently Relevant to Health Maintenance Insurance [facility] Care Teams Bone Char Kiln Tender Relationship Specialty Start Date End Date Baron Herrera MD [address] [facility] [address] [place] [address] PCP - General 02/04/19
--- OUTSIDE RECORDS SUMMARY | 2024-07-01 08:29 | XMS_ITS | Clinical Summary ---
Author Organization [facility] Address [address] [place] [address] Care Team Providers Care Toddler Caregiver Name Role Phone Baron Herrera MD Primary Care Provider [phone] Allergies Active Allergy Reactions Criticality Noted Date Comments Iodine Itching Low 03/06/2019 Medications lisinopril 10 MG tablet Take 10 mg by mouth daily. Active Calcium Carbonate Antacid 600 MG Chew Tab Chew 1 tablet by mouth daily. Active vitamin D3, cholecalciferol , 5000 UNITS capsule Take 1 capsule by mouth daily. Active TIZANIDINE 4 MG tabletIndicatio ns:S/P cervical spinal fusion Take 1 tablet (4 mg total) by mouth 2 (two) times daily as needed (trapezius spasm). 40 tablet 1 09/10/2019 Active methocarbamol (ROBAXIN) 500 MG tabletIndicatio ns:S/P cervical spinal fusion Take 1 tablet (500 mg total) by mouth 3 (three) times daily as needed (Spasm). 60 tablet 2 01/28/2020 Active Active Problems Problem Noted Date Diagnosed Date Cervical radiculopathy 08/12/2019 Cervical stenosis of spine 08/12/2019 Cervical spine instability 08/12/2019 Degenerative disc disease, cervical 08/12/2019 Foraminal stenosis of cervical region 08/12/2019 S/P cervical spinal fusion 08/12/2019 Cervical disc herniation 08/06/2019 Family History Medical History Relation Comments Asthma Brother Diabetes Father Heart Disease Father Hypertension Father Relation Status Comments Brother Daughter 1 Alive Daughter 2 Alive Father (Age 72) Mother Alive Son Alive Social History Tobacco Use Types Packs/Day Years Used Date Smoking Tobacco: Former Cigarettes 1 10 2017 Smokeless Tobacco: Never Tobacco Cessation:Counseling Given: Not Answered Alcohol Use Standard Drinks/Week Comments Yes 0 (1 standard drink = 0.6 oz pur e alcohol) occassional Comments No Sex and Gender Information Value Date Recorded Sex Assigned at Not on file 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 Gender Identity Not on file Sexual Orientation Not on file Last Filed Vital Signs Vital Sign Reading Time Taken Comments Blood Pressure 122/86 11/14/2022 4:06 PM CDT Pulse 96 11/14/2022 4:06 PM CDT Temperature 36.4 C (97.6 F) 11/14/2022 4:06 PM CDT Respiratory Rate 18 11/14/2022 4:06 PM CDT Oxygen Saturation 100% 11/14/2022 4:06 PM CDT Inhaled Oxygen Concentration - - Weight 97.5 kg (215 lb) 11/14/2022 4:06 PM CDT Height 162.6 cm (5' 4 ) 11/14/2022 4:06 PM CDT Body Mass Index 36.9 11/14/2022 4:06 PM CDT Plan of Treatment Health Maintenance Due Date Last Done Comments Colorectal Cancer Screening Colonoscopy (10 Years) 1975 Annual Physical 10/12/1979 Hepatitis C 1994 DTaP, Tdap and Td Vaccines ( 1 - Tdap) 10/12/1995 Hepatitis B Vaccines (1 of 3 - 19+ 3-dose series) 10/12/1995 Cervical Cancer Screening Pa p with HPV Testing (Age 30 to 64) Every 5 Years 2006 COVID-19 Vaccine (2023-2 5 season) 2023 06/30/2020, 06/09/2020 Mammogram Screening 03/19/2025 03/19/2023, 03/14/2022, 05/30/2018 Cervical Cancer Screening Pa p Smear (Age 30 to 64) Every 3 Years 03/19/2026 03/19/2023 Cervical Cancer Screening wi th HPV 03/19/2026 Meningococcal B Vaccine Aged Out No l onger eligible based on patient's age to complete this topic Meningococcal Vaccine Aged Out No sherry shilpi eligible based on patient's age to complete this topic Pneumococcal Vaccine: Pediatrics (0 to 5 Years) and At-Risk Patients (6 to 49 Years) Aged Out No longer eligible b ased on patient's age to complete this topic RSV Immunizations Under 20 Months Aged Out No longer eligible b ased on patient's age to complete this topic Medical Devices Implanted Type Area Racing Secretary And Handicapper Device Identifier Shelf Expiration Date Model / Serial / Lot Graft Infuse Bone Medium - [id number] Implanted:Qty : 1 on 08/12/2019 by Nolberto Adams MD at [facility] N/A: Spine Cervical [employer] 10/25/2020 [id number] / / [id number] Bio Avs C-Open 4 Implanted:Qty : 1 on 08/12/2019 by Nolberto Adams MD at [facility] N/A: Spine Cervical [id number] 10/06/2022 [id number] / [id number] / Description:C3-C4 Bio Avs C-Open 4 Implanted:Qty : 1 on 08/12/2019 by Nolberto Adams MD at [facility] N/A: Spine Cervical [id number] 10/06/2022 [id number] / [id number] / Description:C4-C5 Bio Avs C-Open 4 Implanted:Qty : 1 on 08/12/2019 by Nolberto Adams MD at [facility] N/A: Spine Cervical [id number] 08/15/2022 [id number] / [id number] / Description:C5-C6 Bio Avs C-Open 4 Implanted:Qty : 1 on 08/12/2019 by Nolberto Adams MD at [facility] N/A: Spine Cervical [id number] 08/15/2022 [id number] / [id number] / Description:C6-C7 Screw Variable Self Drilling Steven 14mm - [id number] Implanted:Qty : 9 on 08/12/2019 by Nolberto Adams MD at [facility] N/A: Spine Cervical STEVEN [employer] - DIV STEVEN CIRA [id number] / / 72 Mm Plate Implanted:Qty : 1 on 08/12/2019 by Nolberto Adams MD at [facility] N/A: Spine Cervical [id number] / / Explanted Type Area Racing Secretary And Handicapper Device Identifier Shelf Expiration Date Model / Serial / Lot Distration Pin 12mm - [id number] Explanted:Qty: 5 on 08/12/2019 at [facility] N/A: Spine Cervical [employer] DP-12-TB / / Screw Variable Self Drilling Steven 14mm - [id number] Explanted:Qty: 1 on 08/12/2019 at [facility] N/A: Spine Cervical [employer] - DIV STEVEN CIRA [id number] / / Insurance Advance Directives * Full Code (Latest Code Status on File) Date Activated Date Inactivated Comments 08/12/2019 2:07 PM 08/13/2019 6:40 PM Care Teams Toddler Caregiver Relationship Specialty Start Date End Date Baron Herrera MD [address] [place] [address] PCP - General FAMILY PRACTICE 3/16/20
--- OUTSIDE RECORDS SUMMARY | 2024-07-01 08:29 | XMS_ITS | Referral Summary ---
Author Organization [facility] [address] Address [address] [place] [address] Phone Care Team Providers Care Radiator Tester Name Role Phone Baron Herrera MD Primary Care Provider Encounters Date Type Department Care Team Description 04/03/2024 Telephone [facility] [address] [place] [address] Bernadine Rodrigues LPN from Last 3 Months Allergies Active Allergy Reactions Criticality Noted Date Comments Iodine Itching Low 03/06/2019 Medications lisinopril (PRINIVIL,ZESTR [place]) 10 mg tablet Take 1 tablet (10 mg total) by mouth nightly Active terbinafine (LamiSIL) 250 mg tabletIndicatio ns:Skin/Soft Tissue Infection Take 250 mg by mouth nightly Active vitamin M85-cgbds acid 0.5-1 mg tablet Take 1 tablet [...] (02/13/2019): Added automatically from request for surgery [id number] Social History Tobacco Use Types Packs/Day Years Used Date Smoking Tobacco: Former Cigarettes 1 28.4 1 - 07/2017 Smokeless Tobacco: Never Tobacco Cessation:Counseling Given: Not Answered Alcohol Use Standard Drinks/Week Comments Yes 3 (1 standard drink = 0.6 oz pur e alcohol) 2 x month Comments No Sex and Gender Information Value Date Recorded Sex Assigned at Not on file Legal Sex Female 8:39 AM ANALYZER SALES Gender Identity Not on file Sexual Orientation Not on file Occupation Industry Job Start Date Job End Date [employer] Not on file Not on file Not on file Last Filed Vital Signs Vital Sign Reading Time Taken Comments Blood Pressure 132/78 04/01/2024 11:07 AM ANALYZER SALES Pulse 70 03/13/2019 10:10 AM ANALYZER SALES Temperature 36.4 C (97.5 F) 06/12/2019 11:47 AM CDT Respiratory Rate 18 03/13/2019 10:10 AM ANALYZER SALES Oxygen Saturation 97% 03/13/2019 10:10 AM ANALYZER SALES Inhaled Oxygen Concentration - - Weight 99.8 kg (220 lb) 04/01/2024 11:07 AM ANALYZER SALES Height 162.6 cm (5' 4 ) 04/01/2024 11:07 AM ANALYZER SALES Body Mass Index 37.76 04/01/2024 11:07 AM ANALYZER SALES Plan of Treatment Not on file Procedures Procedure Name Priority Date/Time Associated Diagnosis Comments SCREENING MAMMOGRAM BILATERAL W RONI Schedule Routine, Read Routine (OP Routine) 04/01/2024 11:56 AM ANALYZER SALES Encounter for screening mammogram for breast cancer PAP AND HIGH RISK HPV, REFLEX TO GENOTYPING Routine 03/19/2023 8:28 AM ANALYZER SALES Screening for malignant neoplasm of the cervix from Last 3 Months or Most Recently Relevant to Health Maintenance Results * Screening Mammogram Bilateral W Roni (04/01/2024 11:56 AM ANALYZER SALES) Anatomical Region Laterality Modality Breast Bilateral Mammography 04/01/2024 12:0 3 PM ANALYZER SALES Impressions 04/01/2024 12:03 PM ANALYZER SALES There is no mammographic evidence of malignancy. A 1 year screening mammogram is recommended. BI-RADS: 1 - Negative. The patient has been or will be contacted. The patient will be entered into a reminder system with a target due date of 1 year for her next mammogram. Electronically signed by: Gabbie Lockhart M.D. Narrative 04/01/2024 12:03 PM ANALYZER SALES EXAMINATION: SCREENING MAMMOGRAM BILATERAL W RONI ORDERING HEALTHCARE PROVIDER: JEANE LEIGH HISTORY: Routine screening mammography. COMPARISON: 03/19/2023, [...] has been no suspicious interval change. us Jeane Leigh MD IMG MAMMO PROCEDURES Final Result * Pap and High Risk HPV and Genotyping (Cytology Component) (03/19/2023 8:28 AM ANALYZER SALES) Thin prep (Pap test) 03/19/2023 8:28 AM ANALYZER SALES 03/19/2023 8:28 AM ANALYZER SALES Narrative PATHOLOGY CH - 03/21/2023 2:03 PM ANALYZER SALES [facility] Department of Pathology [address] [place] [address] Final Report with Addendum Note to Patients: [...] questions and explain the details. Patient Name: BERNADINE CAPPS [address]: [address] [place] [address]- Gender: F : 1975 (Age: 47) Service: Location: [facility] #: [id number] Patient Type: SPECIMEN Taken: 03/19/2023 Received: 03/19/2023 Accessioned:: 03/20/2023 Reported: 03/21/2023 Physician(s): MD Jeane Villagran MD Diagnosis: SOURCE OF SPECIMEN SCREENING [...] Papilloma virus (HPV) is performed by the [place] 6800 HPV test. This assay specifically [...] this test have been verified by the [facility] Molecular Infectious Disease laboratory. Correlate with reported [...] determined by the Surgical Pathology Department at [facility] as part of an ongoing quality control tech program and in compliance with federally mandated [...] characteristics determined by the Surgical Pathology Department [facility]. It has not been cleared or approved by the U. S. Food and Drug Administration. Jeane Leigh MD LAB CYTOLOGY ORDERABL ES Final Result PATHOLOGY [address] [place], [place] [id number] from Last 3 Months or Most Recently Relevant to Health Maintenance Insurance [facility]O Address: [address] [address] [place] [address] [facility] H[facility]/PPO Address: [address] [place] [id number] Care Teams Radiator Tester Relationship Specialty Start Date End Date Baron Herrera MD [address] [place] [address] PCP - General 02/04/19
--- OUTSIDE RECORDS SUMMARY | 2024-07-01 08:29 | XMS_ITS | Encounter Summary ---
Author Organization [facility] Address [address] [place] [address] Care Team Providers Care Commercial Project Manager Name Role Phone Baron Herrera MD Primary Care Provider [phone] Encounter Details Date Type Department Care Team (Late st Contact Info) Description 08/05/2019 Prep for Procedure [facility] [place] Pre-Admission Testing [place] [address] Nolberto Adams MD Social History Tobacco Use Types Packs/Day Years Used Date Smoking Tobacco: Former Cigarettes 2017 Smokeless Tobacco: Never Alcohol Use Standard Drinks/Week Comments Yes 0 (1 standard drink = 0.6 oz pur e alcohol) occassional Comments No Sex and Gender Information Value Date Recorded Sex Assigned at Not on file 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 No / Unsure 08/06/2019 1:08 PM CDT documented as of this encounter Plan of Treatment Not on file documented as of this encounter Visit Diagnoses Diagnosis Pre-op exam- Primary Preoperative examination, unspecified documented in this encounter Additional Health Concerns Infection Onset Date Last Indicated Resolved Time COVID-19 Rule Out 08/10/2019 08/10/2019 08/11/2019 5:47 AM CDT documented as of this encounter Care Teams Commercial Project Manager Relationship Specialty Start Date End Date Baron Herrera MD [address] [place] [address] PCP - General FAMILY PRACTICE 05/11/19 documented as of this encounter
== END ==
LOC: EXPTROY 08:26
PROVIDERS: PCP Physician Assistant; Visit Provider Physician Assistant
DX: M79.672 Pain in left foot (principal); M79.671 Pain in right foot; M76.60 Achilles tendinitis, unspecified leg
CPT/HCPCS: 73600; 73620

== ENCOUNTER 2024-10-14 13:14 | Outpatient (CLI) | payer OTHER, SELFPAY ==
--- OUTSIDE RECORDS SUMMARY | 2024-10-14 13:29 | XMS_ITS | Clinical Summary ---
Author Organization [facility] [address] Address [address] [place] [address] Phone Care Team Providers Care Laundry Technician Name Role Phone Baron Herrera MD Primary Care Provider Allergies Active Allergy Reactions Criticality Noted Date Comments Iodine Itching Low 03/06/2019 Medications lisinopril (PRINIVIL,ZESTR IL) 10 mg tablet Take 1 tablet (10 mg total) by mouth nightly Active terbinafine (LamiSIL) 250 mg tabletIndicatio ns:Skin/Soft Tissue Infection Take 250 mg by mouth nightly Active vitamin K41-ukrtd acid 0.5-1 mg tablet Take 1 tablet [...] (02/13/2019): Added automatically from request for surgery [id number] Encounters Date Type Department Care Team Description 07/14/[address] [facility] [address] [place] [address] Walter Leigh MD Imaging Results from Last 3 Months Surgical History Surgery [...] on file Legal Sex Female 8:39 AM MOWER MECHANIC Gender Identity Not on file Sexual Orientation [...] Comments Blood Pressure 132/78 04/01/2024 11:07 AM MOWER MECHANIC Pulse 70 03/13/2019 10:10 AM MOWER MECHANIC Temperature 36.4 C (97.5 F) 06/12/2019 11:47 AM CDT Respiratory Rate 18 03/13/2019 10:10 AM MOWER MECHANIC Oxygen Saturation 97% 03/13/2019 10:10 AM MOWER MECHANIC Inhaled Oxygen Concentration - - Weight 99.8 kg (220 lb) 04/01/2024 11:07 AM MOWER MECHANIC Height 162.6 cm (5' 4) 04/01/2024 11:07 AM MOWER MECHANIC Body Mass Index 37.76 04/01/2024 11:07 AM MOWER MECHANIC Plan of Treatment Health Maintenance Due Date Last Done Comments Colon Cancer Screening-Colonoscopy 1975 Depression Screening 1975 Hepatitis C Screening 1975 DTaP/Tdap/Td Vaccine (1 - Tdap) 10/12/1987 Cervical Cancer Screening 03/19/2024 03/19/2023, Influenza Vaccine (#1) 2024 Breast Cancer Screening-Mammogram 04/01/2025 04/01/2024, 03/19/2023, [...] Read Routine (OP Routine) 04/01/2024 11:56 AM MOWER MECHANIC Encounter for screening mammogram for breast cancer PAP AND HIGH RISK HPV, REFLEX TO GENOTYPING Routine 03/19/2023 8:28 AM MOWER MECHANIC Screening for malignant neoplasm of the cervix from Last 3 Months or Most Recently Relevant to Health Maintenance Results * Screening Mammogram Bilateral W Roni (04/01/2024 11:56 AM MOWER MECHANIC) Anatomical Region Laterality Modality Breast Bilateral Mammography 04/01/2024 12:0 3 PM MOWER MECHANIC Impressions 04/01/2024 12:03 PM MOWER MECHANIC There is no mammographic evidence of malignancy. A 1 year screening mammogram is recommended. BI-RADS: 1 - Negative. The patient has been or will be contacted. The patient will be entered into a reminder system with a target due date of 1 year for her next mammogram. Electronically signed by: Gabbie Lockhart M.D. Narrative 04/01/2024 12:03 PM MOWER MECHANIC EXAMINATION: SCREENING MAMMOGRAM BILATERAL W RONI ORDERING [...] There has been no suspicious interval change. Walter Leigh MD IMG MAMMO PROCEDURES Final Result * Pap and High Risk HPV and Genotyping (Cytology Component) (03/19/2023 8:28 AM MOWER MECHANIC) Thin prep (Pap test) 03/19/2023 8:28 AM MOWER MECHANIC 03/19/2023 8:28 AM MOWER MECHANIC Narrative PATHOLOGY CH - 03/21/2023 2:03 PM MOWER MECHANIC [facility] Department of Pathology [address] [place], [place] [id number] Final Report with Addendum Note to Patients: [...] the details. Patient Name: TEJAL CAPPS Address: [address] [place] [address]- Gender: F : 1975 (Age: 47) Service: Location: [facility] : [id number] [facility] #: [id number] Patient Type: SPECIMEN Taken: 03/19/2023 Received: 03/19/2023 [...] this test have been verified by the [facility] Molecular Infectious Disease laboratory. Correlate with reported [...] determined by the Surgical Pathology Department at [facility] as part of an ongoing air quality engineer program and in compliance with federally mandated [...] characteristics determined by the Surgical Pathology Department [facility]. It has not been cleared or approved by the U. S. Food and Drug Administration. Walter Leigh MD LAB CYTOLOGY ORDERABL ES Final Result PATHOLOGY [address] [place] [address] from Last 3 Months or Most Recently Relevant to Health Maintenance Insurance [facility] CHOICE PLUS [facility] HMO/PPO Address: [address] [address] [place] [address] [facility] CHOICE PLUS [facility] HMO/PPO Address: [address] [address] [place] [address] Care Teams Laundry Technician Relationship Specialty Start Date End Date Baron Herrera MD [address] [facility] [address] [place] [address] PCP - General 02/04/19
--- NOTE | 2024-10-14 14:15 | NEURO_ITS ---
Impression: # Complains of right foot pain, # Right Lateral Plantar latency prolonged; Compatible with Tarsal Tunnel Syndrome. # Normal Needle/EMG exam. Nerve Conduction Studies ?Stim Site NR Peak (ms) P-T Amp (?V) Site1 Site2 Delta-P (ms) Dist (cm) Bi (m/s) Right Sup Fibular Anti Sensory (Ant Lat Mall) 14 cm ? 3.6 4.9 14 cm Ant Lat Mall 3.6 16.0 44 Right Sural Anti Sensory (Lat Mall) Calf ? 3.4 11.4 Calf Lat Mall 3.4 16.0 47 ?Stim Site NR Onset (ms) O-P Amp (mV) Site1 Site2 Delta-0 (ms) Dist (cm) Bi (m/s) Right Lateral Plantar Motor (ADM) Med Mall ? 6.1 2.7 Right Peroneal Motor (Vastus Med) Ankle ? 5.0 1.8 Popit Ankle 8.7 37.0 43 Popit ? 13.7 1.5 Right Tibial Motor (Abd Bro Brev) Ankle ? 5.2 2.0 Knee Ankle 8.7 38.0 44 Knee ? 13.9 1.3 F Wave Studies ?NR F-Lat (ms) L-R F-Lat (ms) Right Peroneal (Mrkrs) (EDB) ? 53.02 Right Tibial (Mrkrs) (Abd Hallucis) ? 51.02 Electromyography ?Side Muscle Nerve Root Ins Act Fibs Amp Dur Recrt Comment Right AntTibialis Dp Br Fibular L4-5 Nml Nml Nml Nml Nml Right Gastroc Tibial S1-2 Nml Nml Nml Nml Nml Right Fibularis Long Sup Br Fibular L5-S1 Nml Nml Nml Nml Nml Right Flex Dig Long Tibial L5-S2 Nml Nml Nml Nml Nml Right Ext Dig Brev Dp Br Fibular L5, S1 Nml Nml Nml Nml Nml Right QuadratusFem QuadFemoris L4-5, S1 Nml Nml Nml Nml Nml
== END 2024-10-14 13:15 | disposition home or self-care (01) ==
PROVIDERS: PCP Family Medicine; Visit Provider Podiatrist Foot & Ankle Surgery
DX: G57.51 Tarsal tunnel syndrome, right lower limb (principal)
CPT/HCPCS: 95886; 95908

== ENCOUNTER 2024-11-06 13:00 | Outpatient (CLI) | payer OTHER, SELFPAY ==
--- NOTE | 2024-11-06 13:07 | ECG_ITS ---
Test Date: 2024-11-06 13:14:47 Measurements Intervals [place] Rate: 97 P: 10 [place]: 152 QRS: 3 QRSD: 88 T: 10 QT: 357 QTc: 455 Interpretive Statements SINUS RHYTHM LOW QRS VOLTAGE IN PRECORDIAL LEADS [QRS DEFLECTION < 1.0 mV IN CHEST LEADS] No previous ECG available for comparison Electronically Signed On 11-06-2024 15:45:09 CDT by Merlin Arroyo M.D.
== END 2024-11-06 13:01 | disposition home or self-care (01) ==
LOC: ANHLAB 13:03
PROVIDERS: PCP Family Medicine; Visit Provider Podiatrist Foot & Ankle Surgery
DX: Z01.818 Encounter for other preprocedural examination (principal)
CPT/HCPCS: 93005

== ENCOUNTER 2024-12-07 11:24 | Emergency (ER) | payer OTHER, SELFPAY ==
[2024-12-07 11:34] VITALS: BP 146/95; PULSE 98; RESP 16; TEMP 36.1; O2SAT 98
--- NOTE | 2024-12-07 11:35 | ED_ITS ---
HPI - Ear Problem General Chief complaint: Ear Stated complaint: L Ear Time Seen by Provider: 12/07/24 11:30 Source: patient Mode of arrival: ambulatory Limitations: no limitations History of Present Illness HPI Narrative: Tejal is a 49-year-old female patient presenting to the clinic today with complaints of left ear pain times 3-4 days. She denies any URI symptoms. States that she got some water in ears. No drainage coming from the ear. Denies any fevers, chills, body aches. Related Data Allergies Allergy/AdvReac Type Severity Reaction Status Date / Time azithromycin Allergy Mild Rash Verified 08/27/24 10:01 iodine Allergy Hives Verified 08/27/24 10:01 Iodinated Contrast Media AdvReac Mild Hives Verified 08/27/24 10:01 Review of Systems Review of Systems: Pertinent positives per HPI. Patient denies any fever, chills, rash, headache, visual changes, dizziness, cough, shortness of breath, chest pain, palpitations, nausea, vomiting, diarrhea, constipation, abdominal pain, or any urinary issues. [facility] Past Medical History Medical History Bone spur Bulge of cervical disc without myelopathy Surgical History Surgical History S/P cervical disc replacement Family History Family History Father Diabetes mellitus Hypertension Family history of cardiovascular disease Social History Social History Social History: Smoking status: Never smoker Tobacco type: cigarettes Second hand tobacco smoke exposure: No Smoking end date: 02/26/16 Alcohol intake: current Alcohol use details: Occasionally Substance use: never Substance use type: does not use Lack of Transportation: No Lack of Food: Never True Current Housing: I Have Housing Concerned About Future Housing: No Difficulty Paying Gas/Electric Bills: No Difficulty Paying for Meds: No Currently Unemployed: No Education: Trade/Vocational Certificate Living arrangements: with family Occupation/Education: occupation 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 There is no relevant family history pertinent to the patient complaint. Exam Narrative: General: Well-developed, well nourished, in no apparent distress Head: Normocephalic, atraumatic Eyes: Pupils equally round and reactive to light bilaterally, EOM intact, sclera and conjunctive clear, no discharge, lids normal Ears: TMs intact and clear, right ear canal clear, left ear canal red and s wollen with tenderness palpation over the tragus and pulling of the pinna, no drainage, grossly hearing normal. Nose: Nares patent, no discharge, no inflammation, no sinus tenderness. Mouth: Oral pharynx without lesions or masses, good dentition, MMM. Neck: Supple, trachea midline, no enlargement of anterior or posterior cervical nodes, no thyroid masses or goiter palpable. Cardio: Regular rate and rhythm, s1 and s2 normal, no murmur appreciated. Resp: Clear to auscultation bilaterally, no rhonchi, rales, wheezing or rubs Course Course Emergency Course: Portions of this record may have been created with voice recognition software. Level of Care: Express Care Visit Vital Signs Vital signs: Vital Signs Temperature 36.1 C L 12/07/24 11:34 Pulse Rate 98 12/07/24 11:34 Respiratory Rate 16 12/07/24 11:34 Blood Pressure 146/95 H 12/07/24 11:34 Pulse Oximetry 98 12/07/24 11:34 Temperature 36.1 C L 12/07/24 11:34 Pulse Rate 98 12/07/24 11:34 Respiratory Rate 16 12/07/24 11:34 Blood Pressure 146/95 H 12/07/24 11:34 Pulse Oximetry 98 12/07/24 11:34 Vital signs reviewed Medical Decision Making MDM Narrative Medical decision making narrative: At the time of visit patient is resting comfortably on the exam table. Patient appears to be nontoxic. complaints of left ear pain times 3-4 days. She denies any URI symptoms. States that she got some water in ears. No drainage coming from the ear. Denies any fevers, chills, body aches. On exam patient has tenderness to palpation over the tragus and pulling of the pinna with swelling in the left ear canal, TM intact and clear, right ear canal clear and TM intact and clear. Plan: I suspect patient has left otitis externa. Prescription for ofloxacin ear drops was sent to the pharmacy. Supportive measures were discussed with the patient and they voiced understanding discharge instructions and agrees to treatment plan. Return precautions reviewed Differential Diagnosis Differential Diagnosis: Otitis media, otitis externa, eustachian tube dysfunction, cerumen impaction, upper respiratory infection, serous otitis Vital Signs Vital Signs: Vital Signs Temperature 36.1 C L 12/07/24 11:34 Pulse Rate 98 12/07/24 11:34 Respiratory Rate 16 12/07/24 11:34 Blood Pressure 146/95 H 12/07/24 11:34 Pulse Oximetry 98 12/07/24 11:34 Temperature 36.1 C L 12/07/24 11:34 Pulse Rate 98 12/07/24 11:34 Respiratory Rate 16 12/07/24 11:34 Blood Pressure 146/95 H 12/07/24 11:34 Pulse Oximetry 98 12/07/24 11:34 Discharge Plan Discharge Clinical Impression: External otitis of left ear Patient Disposition: Home Condition: Stable Instructions: Antibiotic Form, Swimmer's Ear (ED) Additional Instructions: Take any prescribed medications only as directed-ofloxacin Tylenol/motrin as directed as needed for pain May use heating pad to alleviate pain If you get recurrent ear infections it may be warranted to follow up with ENT. Follow up with your PCP in 3-5 days if symptoms persist. Patient Language: Solomon Islander Prescriptions: New ofloxacin 0.3 % drops 5 drp otic (ear) BID 7 Days Qty: 5 0RF No Action amitriptyline 25 mg tablet See Rx Instructions .ROUTE .COMPLEX Qty: 90 3RF Dose Instruction: TAKE 1 TABLET BY MOUTH DAILY AT BEDTIME Rx Instructions: TAKE 1 TABLET BY MOUTH DAILY AT BEDTIME ropinirole 1 mg tablet 1 mg PO QHS Qty: 90 1RF sertraline 50 mg tablet See Rx Instructions .ROUTE .COMPLEX Qty: 135 1RF Dose Instruction: TAKE 1 AND 1/2 TABLETS BY MOUTH DAILY Rx Instructions: TAKE 1 AND 1/2 TABLETS BY MOUTH DAILY lisinopril 10 mg tablet See Rx Instructions .ROUTE .COMPLEX Qty: 90 3RF Dose Instruction: TAKE 1 TABLET DAILY Rx Instructions: TAKE 1 TABLET DAILY Follow-up/Referrals: Baron Herrera MD [Primary Care Provider, Family Practice] Time of Disposition: 11:38 Quality NIHSS Nursing Documentation ED NIHSS nursing documentation: reviewed/agree
--- OUTSIDE RECORDS SUMMARY | 2024-12-07 12:51 | XMS_ITS | Clinical Summary ---
Author Organization [facility] [address] Address [address] [place] [address] Phone Care Team Providers Care Senior Business Process Analyst Name Role Phone Baron Herrera MD Primary Care Provider Allergies Active Allergy Reactions Criticality Noted Date Comments Iodine Itching Low 03/06/2019 Medications lisinopril (PRINIVIL,ZESTR IL) 10 mg tablet Take 1 tablet (10 mg total) by mouth nightly Active terbinafine (LamiSIL) 250 mg tabletIndicatio ns:Skin/Soft Tissue Infection Take 250 mg by mouth nightly Active vitamin I91-ukyzk acid 0.5-1 mg tablet Take 1 tablet [...] (02/13/2019): Added automatically from request for surgery [id number] Surgical History Surgery Date Site/Laterality Comments TONSILLECTOMY/ADENOIDECTOM [...] Smoking Tobacco: Former Cigarettes 1 28.4 1 990 - 07/2017 Smokeless Tobacco: Never Tobacco Cessation:Counseling Given: Not Answered Alcohol Use Standard Drinks/Week Comments Yes 3 (1 standard drink = 0.6 oz pur e alcohol) 2 x month Comments No Sex and Gender Information Value Date Recorded Sex Assigned at Not on file Legal Sex Female 8:39 AM SUPERVISOR CARBON PAPER COATING Gender Identity Not on file Sexual Orientation [...] Comments Blood Pressure 132/78 04/01/2024 11:07 AM SUPERVISOR CARBON PAPER COATING Pulse 70 03/13/2019 10:10 AM SUPERVISOR CARBON PAPER COATING Temperature 36.4 C (97.5 F) 06/12/2019 11:47 AM CDT Respiratory Rate 18 03/13/2019 10:10 AM SUPERVISOR CARBON PAPER COATING Oxygen Saturation 97% 03/13/2019 10:10 AM SUPERVISOR CARBON PAPER COATING Inhaled Oxygen Concentration - - Weight 99.8 kg (220 lb) 04/01/2024 11:07 AM SUPERVISOR CARBON PAPER COATING Height 162.6 cm (5' 4) 04/01/2024 11:07 AM SUPERVISOR CARBON PAPER COATING Body Mass Index 37.76 04/01/2024 11:07 AM SUPERVISOR CARBON PAPER COATING Plan of Treatment Health Maintenance Due Date [...] Read Routine (OP Routine) 04/01/2024 11:56 AM SUPERVISOR CARBON PAPER COATING Encounter for screening mammogram for breast cancer PAP AND HIGH RISK HPV, REFLEX TO GENOTYPING Routine 03/19/2023 8:28 AM SUPERVISOR CARBON PAPER COATING Screening for malignant neoplasm of the cervix from Last 3 Months or Most Recently Relevant to Health Maintenance Results * Screening Mammogram Bilateral W Roni (04/01/2024 11:56 AM SUPERVISOR CARBON PAPER COATING) Anatomical Region Laterality Modality Breast Bilateral Mammography 04/01/2024 12:0 3 PM SUPERVISOR CARBON PAPER COATING Impressions 04/01/2024 12:03 PM SUPERVISOR CARBON PAPER COATING There is no mammographic evidence of malignancy. A 1 year screening mammogram is recommended. BI-RADS: 1 - Negative. The patient has been or will be contacted. The patient will be entered into a reminder system with a target due date of 1 year for her next mammogram. Electronically signed by: Gabbie Lockhart M.D. Narrative 04/01/2024 12:03 PM SUPERVISOR CARBON PAPER COATING EXAMINATION: SCREENING MAMMOGRAM BILATERAL W RONI ORDERING [...] and Genotyping (Cytology Component) (03/19/2023 8:28 AM SUPERVISOR CARBON PAPER COATING) Thin prep (Pap test) 03/19/2023 8:28 AM SUPERVISOR CARBON PAPER COATING 03/19/2023 8:28 AM SUPERVISOR CARBON PAPER COATING Narrative PATHOLOGY CH - 03/21/2023 2:03 PM SUPERVISOR CARBON PAPER COATING [facility] Department of Pathology [address] [place] [address] Final Report with Addendum Note to Patients: [...] the details. Patient Name: TEJAL CAPPS Address: [address] [place] [address]- Gender: F : 1975 (Age: 47) Service: Location: N : [id number] [facility] #: [id number] Patient Type: SPECIMEN Taken: 03/19/2023 Received: 03/19/2023 [...] Electronically Reviewed and Signed Out By OSVALDO Barajas(ASC) 03/21/2023 14:03:10Addenda: HPV Test Interpretation (Normal-Negative for [...] this test have been verified by the [facility] Molecular Infectious Disease laboratory. Correlate with reported cytology results, as applicable. Interpretive data last revised 22 OSVALDO Beal(ASC)Report Electronically Reviewed and Signed Out By OSVALDO Beal(ASC) 03/21/2023 08:40:40 Specimen(s) Received: A: SCREENING THIN [...] determined by the Surgical Pathology Department at [facility] as part of an ongoing it quality analyst program and in compliance with federally mandated [...] characteristics determined by the Surgical Pathology Department [facility]. It has not been cleared or approved by the U. S. Food and Drug Administration. Walter Leigh MD LAB CYTOLOGY ORDERABL ES Final Result Performing Organization Address City/State/[facility] Co de Phone Number PATHOLOGY [address] [place] [address] from Last 3 Months or Most Recently Relevant to Health Maintenance Insurance [facility] CHOICE PLUS [facility] CHO[facility] PLUS Care Teams Senior Business Process Analyst Relationship Specialty Start Date End Date Baron Herrera MD [address] [place] [address] PCP - General 02/04/19
--- OUTSIDE RECORDS SUMMARY | 2024-12-07 12:51 | XMS_ITS | Encounter Summary ---
Author Organization [facility] Address [address] [place] [address] Care Team Providers Care Design Coordinator Name Role Phone Baron Herrera MD Primary Care Provider [phone] Encounter Details Date Type Department Care Team (Late st Contact Info) Description 08/05/2019 Prep for Procedure [place] Pre-Admission Testing [address] [place] [address] Nolberto Adams MD Social History Tobacco Use Types Packs/Day Years Used Date Smoking Tobacco: Former Cigarettes 2017 Smokeless Tobacco: Never Alcohol Use Standard Drinks/Week Comments Yes 0 (1 standard drink = 0.6 oz pur e alcohol) occassional Comments No Sex and Gender Information Value Date Recorded Sex Assigned at Not on file Legal Sex Female 12:24 AM AIRCRAFT 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
--- OUTSIDE RECORDS SUMMARY | 2024-12-07 12:51 | XMS_ITS | Clinical Summary ---
Author Organization [facility] Address [address] [place] [address] Care Team Providers Care School Bus Operator Name Role Phone Baron Herrera MD Primary Care Provider [phone] Allergies Active Allergy Reactions Criticality Noted Date [...] on file Legal Sex Female 12:24 AM [employer] W[employer] OPERATOR Gender Identity Not on file Sexual [...] 4:06 PM CDT Height 162.6 cm (5' 4) 11/14/2022 4:06 PM CDT Body Mass Index [...] 64) Every 5 Years 2006 COVID-19 Vaccine (2024-2 6 season) 2024 06/30/2020, 06/09/2020 Influenza Adult (#1) 2024 Mammogram Screening 03/19/2025 03/19/2023, 03/14/2022, 05/30/2018 Cervical Cancer Screening Pa p Smear (Age 30 to 64) Every 3 Years 03/19/2026 03/19/2023 Cervical Cancer Screening wi th HPV 03/19/2026 Hepatitis A Vaccines Aged Out No long er eligible based on patient's age to complete this topic Meningococcal B Vaccine Aged Out No l [...] this topic Medical Devices Implanted Type Area Route Delivery Driver Device Identifier Shelf Expiration Date Model / Serial / Lot Graft Infuse Bone Medium - [id number] Implanted:Qty : 1 on 08/12/2019 by Nolberto Adams MD at [facility] N/A: Spine Cervical [employer] 10/25/2020 [id number] / / [id number] Bio Avs C-Open 4 Implanted:Qty : 1 on 08/12/2019 by Nolberto Adams MD at [facility] N/A: Spine Cervical [id number] 10/06/2022 [id number] / [id number] / Description:C3-C4 Bio Avs C-Open 4 Implanted:Qty : 1 on 08/12/2019 by Nolberto Adams MD at [facility] N/A: Spine Cervical [id number] 10/06/2022 [id number] / [id number] / Description:C4-C5 Bio Avs C-Open 4 Implanted:Qty : 1 on 08/12/2019 by Nolberto Adams MD at [facility] N/A: Spine Cervical [id number] 08/15/2022 [id number] / [id number] / Description:C5-C6 Bio Avs C-Open 4 Implanted:Qty : 1 on 08/12/2019 by Nolberto Adams MD at [facility] N/A: Spine Cervical [id number] 08/15/2022 [id number] / [id number] / Description:C6-C7 Screw Variable Self Drilling Steven 14mm - [id number] Implanted:Qty : 9 on 08/12/2019 by Nolberto Adams MD at [facility] N/A: Spine Cervical [employer]EV[employer]A [id number] / / 72 Mm Plate Implanted:Qty : 1 on 08/12/2019 by Nolberto Adams MD at [facility] N/A: Spine Cervical [id number] / / Explanted Type Area Route Delivery Driver Device Identifier Shelf Expiration Date Model / Serial / Lot Distration Pin 12mm - [id number] Explanted:Qty: 5 on 08/12/2019 at [facility] N/A: Spine Cervical [employer] DP-12-[id number] / / Screw Variable Self Drilling [place] 14mm - [id number] Explanted:Qty: 1 on 08/12/2019 at [facility] N/A: Spine Cervical [employer] [id number] / / Insurance Advance Directives * Full Code (Latest Code Status on File) Date Activated Date Inactivated Comments 08/12/2019 2:07 PM 08/13/2019 6:40 PM Care Teams School Bus Operator Relationship Specialty Start Date End Date Baron Herrera MD [address] [place] [address] PCP - General FAMILY PRACTICE 05/11/19
== END 2024-12-07 11:42 | disposition home or self-care (01) ==
PROVIDERS: Emergency Provider Nurse Practitioner Family; PCP Family Medicine
DX: H60.92 Unspecified otitis externa, left ear (principal); Z87.891 Personal history of nicotine dependence
CPT/HCPCS: 99213; G0463